=== PATIENT | male | born 1960 | race Caucasian/White ===

== ENCOUNTER 2020-07-07 17:27 | Emergency (ER) | payer MEDICAID ==
[~2020-07-07] VITALS: Ht 188 cm; Wt 90.7 kg
[2020-07-07 17:29] VITALS: BP_SYST 128
[2020-07-07 17:37] VITALS: BP_SYST 128
== END 2020-07-07 17:52 ==
LOC: SED 17:27
DX: S00.81XA Abrasion of other part of head, initial encounter (principal); V49.9XXA Car occupant (driver) (passenger) injured in unspecified traffic accident, initial encounter; Y93.89 Activity, other specified; Y92.413 State road as the place of occurrence of the external cause; Y99.8 Other external cause status
CPT/HCPCS: 99283